=== PATIENT | female | born 1975 | race American Indian/Alaskan Native ===

== ENCOUNTER 2016-07-14 10:38 | Emergency (ER) | payer MEDICAID ==
[2011-04-16 10:11] VITALS: BMI 21.5
== END 2016-07-14 14:08 | disposition left against medical advice (07) ==
LOC: D.ER 10:38
DX: R05 Cough (principal)

== ENCOUNTER → 2016-10-02 16:33 | Outpatient (CLI) | payer MEDICAID ==
[2011-04-16 10:11] VITALS: BMI 21.5
== END | disposition home or self-care (01) ==
LOC: D.MAMMO 08:15
DX: Z12.31 Encounter for screening mammogram for malignant neoplasm of breast (principal)

== ENCOUNTER → 2017-09-01 08:31 | Outpatient (CLI) | payer MEDICAID ==
[2011-04-16 10:11] VITALS: BMI 21.5
== END | disposition home or self-care (01) ==
LOC: D.RT 08:31
DX: R06.09 Other forms of dyspnea (principal)

== ENCOUNTER 2017-11-14 22:57 | Emergency (ER) | payer MEDICAID ==
[2011-04-16 10:11] VITALS: BMI 21.5
== END 2017-11-15 00:46 | disposition home or self-care (01) ==
LOC: D.ER 22:57
DX: S01.112A Laceration without foreign body of left eyelid and periocular area, initial encounter (principal); Y04.2XXA Assault by strike against or bumped into by another person, initial encounter; Y93.89 Activity, other specified; Y92.019 Unspecified place in single-family (private) house as the place of occurrence of the external cause; F17.200 Nicotine dependence, unspecified, uncomplicated

== ENCOUNTER 2017-12-13 19:17 | Emergency (ER) | payer MEDICAID ==
[~2017-12-13] VITALS: Ht 170.2 cm; Wt 57.7 kg
[2017-12-13 19:31] VITALS: Ht 170.2 cm; Wt 57.7 kg
[2017-12-13] MEDS ORDERED: SPIRIVA18 MCG INH (19:33)
[2017-12-13] MEDS ORDERED: PROAIR HFA8.5 GM INH (19:33)
[2017-12-13] MEDS ORDERED: SOMA350 MG PO (19:34)
[2017-12-13] MEDS ORDERED: MOBIC7.5 MG PO (19:34)
[2017-12-13] MEDS ORDERED: KLONOPIN1 MG PO (19:35)
[2017-12-13 20:41] LABS: BASOPHILS 0.5 % (0-2); EOSINOPHILS 0.8 % (0-7); HEMATOCRIT 38.8 % (36.0-48.0); HEMOGLOBIN 13.5 g/dL (12-16); IMMATURE GRANULOCYTES 0.2 % (0-5); LYMPHOCYTES 42.2 % (15-50); MCH 33.6 pg (26.0-34.0); MCHC 34.8 g/dL (31.0-37.0); MCV 96.5 fL (80.0-100.0); MEAN PLATELET VOLUME 10.4 fL (7.4-10.4); MONOCYTES 12.6 % (2-11); NEUTROPHILS 43.7 % (40-80); PLATELET COUNT 237 10x3/uL (130-400); RBC 4.02 10x6/uL (4.00-5.40); RDW 12.4 % (11.5-14.5); WBC 6.4 10x3/uL (4.8-10.8)
[2017-12-13 21:08] LABS: ALBUMIN 3.4 g/dL (3.4-5.0); ALKALINE PHOSPHATASE 95 U/L (46-116); ALT (SGPT) 21 U/L (10-68); BILIRUBIN - TOTAL 0.26 mg/dL (0.2-1.3); CALC OSMOLALITY 282 mosm/kg (275-300); CALCIUM 9.2 mg/dL (8.5-10.1); CHLORIDE - SERUM 102 mmol/L (98-107); CKMB 0.1 U/L (0.0-3.6); CREATINE KINASE 87 UL (21-215); CREATININE - SERUM 0.8 mg/dL (0.6-1.3); GLUCOSE 94 mg/dL (74-106); PRO BNP 83 pg/mL (0-125); PROTEIN - SERUM 7.8 g/dL (6.4-8.2); SODIUM 141 mmol/L (136-145); UREA NITROGEN 19 mg/dL (7-18); eGFR NON AFRICAN AMERICAN 82 mL/min (90-120)
[2017-12-13 21:12] LABS: POTASSIUM - SERUM 2.7 mmol/L (3.5-5.1)
[2017-12-14 01:12] LABS: UDS - AMPHET NEGATIVE QUAL (NEGATIVE); UDS - BARB NEGATIVE QUAL (NEGATIVE); UDS - BENZO NEGATIVE QUAL (NEGATIVE); UDS - COCAINE NEGATIVE QUAL (NEGATIVE); UDS - OPIATE NEGATIVE QUAL (NEGATIVE); UDS - PCP NEGATIVE QUAL (NEGATIVE); UDS - THC POSITIVE QUAL (NEGATIVE)
[2017-12-14 01:14] LABS: APPEARANCE CLOUDY (CLEAR); BILIRUBIN NEGATIVE (NEGATIVE); COLOR YELLOW (YELLOW); GLUCOSE NEGATIVE (NEGATIVE); KETONE LARGE mg/dL (NEGATIVE); NITRITE POSITIVE (NEGATIVE); PROTEIN 1+ mg/dL (NEGATIVE); SPECIFIC GRAVITY 1.015 (1.005-1.020); UROBILINOGEN NORMAL (NORMAL)
[2017-12-14 01:15] LABS: BACTERIA MANY /hpf (NONE SEEN); EPITHELIAL CELLS 0-5 /hpf (0-5); MUCUS <1+ /lpf (NONE SEEN); RED CELLS - URINE 0-5 /hpf (0-5)
[2017-12-14] MEDS ORDERED: LEVAQUIN500 MG PO (01:27)
[2017-12-14 01:38] VITALS: BP 106/61
== END 2017-12-14 01:39 | disposition home or self-care (01) ==
LOC: D.ER 19:17
PROVIDERS: Family Medicine
DX: N39.0 Urinary tract infection, site not specified (principal); E87.6 Hypokalemia; R53.1 Weakness; J44.9 Chronic obstructive pulmonary disease, unspecified; M54.9 Dorsalgia, unspecified; F17.200 Nicotine dependence, unspecified, uncomplicated

== ENCOUNTER 2017-12-19 12:08 | Emergency (ER) | payer MEDICAID ==
[~2017-12-19] VITALS: Ht 170.2 cm; Wt 54.5 kg
[~2017-12-19 12:08] MED LIST: KLONOPIN1 MG PO; LEVAQUIN500 MG PO; MOBIC7.5 MG PO; PROAIR HFA8.5 GM INH; SOMA350 MG PO; SPIRIVA18 MCG INH
[2017-12-19 12:47] VITALS: Ht 170.2 cm; Wt 54.5 kg
[2017-12-19 13:52] LABS: BASOPHILS 0.8 % (0-2); EOSINOPHILS 0.8 % (0-7); HEMATOCRIT 34.8 % (36.0-48.0); HEMOGLOBIN 11.6 g/dL (12-16); IMMATURE GRANULOCYTES 0.2 % (0-5); LYMPHOCYTES 38.7 % (15-50); MCH 32.7 pg (26.0-34.0); MCHC 33.3 g/dL (31.0-37.0); MEAN PLATELET VOLUME 10.1 fL (7.4-10.4); MONOCYTES 8.7 % (2-11); NEUTROPHILS 50.8 % (40-80); PLATELET COUNT 229 10x3/uL (130-400); RBC 3.55 10x6/uL (4.00-5.40); RDW 12.6 % (11.5-14.5); WBC 5.1 10x3/uL (4.8-10.8)
[2017-12-19 14:12] LABS: ALKALINE PHOSPHATASE 81 U/L (46-116); ALT (SGPT) 23 U/L (10-68); BILIRUBIN - TOTAL 0.21 mg/dL (0.2-1.3); CALC OSMOLALITY 286 mosm/kg (275-300); CALCIUM 8.9 mg/dL (8.5-10.1); CARBON DIOXIDE 29.6 mmol/L (21.0-32.0); CHLORIDE - SERUM 106 mmol/L (98-107); CREATININE - SERUM 0.8 mg/dL (0.6-1.3); GLUCOSE 107 mg/dL (74-106); PROTEIN - SERUM 6.3 g/dL (6.4-8.2); SODIUM 143 mmol/L (136-145); UREA NITROGEN 19 mg/dL (7-18); eGFR NON AFRICAN AMERICAN 82 mL/min (90-120)
[2017-12-19 15:16] LABS: APPEARANCE HAZY (CLEAR); BILIRUBIN NEGATIVE (NEGATIVE); COLOR YELLOW (YELLOW); GLUCOSE NEGATIVE (NEGATIVE); KETONE NEGATIVE (NEGATIVE); NITRITE NEGATIVE (NEGATIVE); PH 8.5 (5.0-6.0); PROTEIN NEGATIVE (NEGATIVE); SPECIFIC GRAVITY 1.005 (1.005-1.020); UROBILINOGEN NORMAL (NORMAL)
[2017-12-19 15:29] LABS: UDS - AMPHET NEGATIVE QUAL (NEGATIVE); UDS - BARB NEGATIVE QUAL (NEGATIVE); UDS - BENZO NEGATIVE QUAL (NEGATIVE); UDS - COCAINE NEGATIVE QUAL (NEGATIVE); UDS - OPIATE NEGATIVE QUAL (NEGATIVE); UDS - PCP NEGATIVE QUAL (NEGATIVE); UDS - THC POSITIVE QUAL (NEGATIVE)
[2017-12-19] MEDS ORDERED: CENTRUM SILVER1 EAC3 PO (15:36)
[2017-12-19 16:00] VITALS: BP 116/72
== END 2017-12-19 16:00 | disposition home or self-care (01) ==
LOC: D.ER 12:08
PROVIDERS: Family Medicine
DX: R53.1 Weakness (principal); J44.9 Chronic obstructive pulmonary disease, unspecified

== ENCOUNTER → 2018-06-21 17:42 | Outpatient (CLI) | payer MEDICAID ==
[2017-12-19 12:47] VITALS: BMI 18.8
[~2018-06-21 17:42] MED LIST changes: +CENTRUM SILVER1 EAC3 PO
== END | disposition home or self-care (01) ==
LOC: D.MAMMO 14:30
DX: Z12.31 Encounter for screening mammogram for malignant neoplasm of breast (principal)

== ENCOUNTER 2018-09-06 12:57 | Emergency (ER) | payer MEDICAID ==
[~2018-09-06] VITALS: Ht 170.2 cm; Wt 58.2 kg
[2018-09-06 13:09] VITALS: Ht 170.2 cm; Wt 58.2 kg
[2018-09-06] MEDS ORDERED: BACTRIM 400-801 TAB PO (13:11)
[2018-09-06] MEDS ORDERED: ZITHROMAX250 MG PO (13:11)
[2018-09-06 13:44] LABS: BASOPHILS 0.2 % (0-2); EOSINOPHILS 0 % (0-7); HEMATOCRIT 35.6 % (36.0-48.0); HEMOGLOBIN 12.3 g/dL (12-16); IMMATURE GRANULOCYTES 0.3 % (0-5); MCH 32.5 pg (26.0-34.0); MCHC 34.6 g/dL (31.0-37.0); MCV 94.2 fL (80.0-100.0); MEAN PLATELET VOLUME 10.2 fL (7.4-10.4); MONOCYTES 2.9 % (2-11); NEUTROPHILS 88.6 % (40-80); RBC 3.78 10x6/uL (4.00-5.40); RDW 12.6 % (11.5-14.5); WBC 11.2 10x3/uL (4.8-10.8)
[2018-09-06 13:49] LABS: PLATELET COUNT 278 10x3/uL (130-400)
[2018-09-06 13:50] LABS: ALBUMIN 3.1 g/dL (3.4-5.0); ANION GAP 17.9 mmol/L (8-16); BILIRUBIN - TOTAL 0.48 mg/dL (0.2-1.3); CALCIUM 8.6 mg/dL (8.5-10.1); CARBON DIOXIDE 24.3 mmol/L (21.0-32.0); POTASSIUM - SERUM 3.2 mmol/L (3.5-5.1); PROTEIN - SERUM 7.3 g/dL (6.4-8.2)
[2018-09-06 14:25] VITALS: BP 89/67
== END 2018-09-06 14:26 | disposition home or self-care (01) ==
LOC: D.ER 12:57
PROVIDERS: Emergency Medicine
DX: J40 Bronchitis, not specified as acute or chronic (principal); J98.11 Atelectasis; F17.200 Nicotine dependence, unspecified, uncomplicated

== ENCOUNTER 2018-09-18 17:23 | Emergency (ER) | payer MEDICAID ==
[~2018-09-18] VITALS: Ht 170.2 cm; Wt 56.4 kg
[~2018-09-18 17:23] MED LIST changes: +BACTRIM 400-801 TAB PO; +ZITHROMAX250 MG PO
[2018-09-18 17:36] VITALS: BP 119/71; Ht 170.2 cm; Wt 56.4 kg
[2018-09-18] MEDS ORDERED: VOLTAREN75 MG PO (18:03)
== END 2018-09-18 18:53 | disposition home or self-care (01) ==
LOC: D.ER 17:23
DX: S62.304A Unspecified fracture of fourth metacarpal bone, right hand, initial encounter for closed fracture (principal); Y04.2XXA Assault by strike against or bumped into by another person, initial encounter; Y93.89 Activity, other specified; Y92.019 Unspecified place in single-family (private) house as the place of occurrence of the external cause

== ENCOUNTER 2018-12-06 20:41 | Emergency (ER) | payer BC ==
[~2018-12-06] VITALS: Ht 170.2 cm; Wt 56.8 kg
[~2018-12-06 20:41] MED LIST changes: +VOLTAREN75 MG PO
[2018-12-06 20:54] VITALS: Ht 170.2 cm; Wt 56.8 kg
[2018-12-06] MEDS ORDERED: VIBRAMYCIN 100100 MG PO (21:49)
[2018-12-06] MEDS ORDERED: VOLTAREN75 MG PO (21:49)
[2018-12-06 22:07] VITALS: BP 123/74
== END 2018-12-06 22:00 | disposition home or self-care (01) ==
LOC: D.ER 20:41
DX: L03.116 Cellulitis of left lower limb (principal)

== ENCOUNTER 2018-12-09 14:08 | Emergency (ER) | payer MEDICAID ==
[~2018-12-09] VITALS: Ht 170.2 cm; Wt 54.5 kg
[~2018-12-09 14:08] MED LIST changes: +VIBRAMYCIN 100100 MG PO
[2018-12-09 14:13] VITALS: BP 118/76; Ht 170.2 cm; Wt 54.5 kg
== END 2018-12-09 14:23 ==
LOC: D.ER 14:08
DX: M54.2 Cervicalgia (principal); Y35.891A Legal intervention involving other specified means, law enforcement official injured, initial encounter; Y93.89 Activity, other specified; Y92.810 Car as the place of occurrence of the external cause; R45.1 Restlessness and agitation

== ENCOUNTER 2018-12-24 21:42 | Emergency (ER) | payer MEDICAID ==
[~2018-12-24] VITALS: Ht 170.2 cm; Wt 58.2 kg
[2018-12-24 22:00] VITALS: Ht 170.2 cm; Wt 58.2 kg
[2018-12-24] MEDS ORDERED: PROZAC10 MG (22:02)
[2018-12-24] MEDS ORDERED: SYMBICORT 16010.2 GM (22:02)
[2018-12-25] MEDS ORDERED: HYDROCODON-ACE1 EAC2 PO (00:01)
[2018-12-25 00:27] VITALS: BP 110/76
== END 2018-12-25 00:27 | disposition home or self-care (01) ==
LOC: D.ER 21:42
DX: S60.051A Contusion of right little finger without damage to nail, initial encounter (principal); X58.XXXA Exposure to other specified factors, initial encounter; Y93.89 Activity, other specified; Y92.89 Other specified places as the place of occurrence of the external cause

== ENCOUNTER 2019-01-05 15:16 | Emergency (ER) | payer MEDICAID ==
[~2019-01-05] VITALS: Ht 170.2 cm; Wt 59.1 kg
[~2019-01-05 15:16] MED LIST changes: +HYDROCODON-ACE1 EAC2 PO; +PROZAC10 MG; +SYMBICORT 16010.2 GM
[2019-01-05 15:43] VITALS: BP 105/57; Ht 170.2 cm; Wt 59.1 kg
[2019-01-05] MEDS ORDERED: MOBIC7.5 MG PO (15:44)
== END 2019-01-05 16:10 | disposition home or self-care (01) ==
LOC: D.ER 15:16
DX: S61.216D Laceration without foreign body of right little finger without damage to nail, subsequent encounter (principal); X58.XXXD Exposure to other specified factors, subsequent encounter; Z48.02 Encounter for removal of sutures

== ENCOUNTER → 2019-01-06 14:11 | Outpatient (CLI) | payer MEDICAID ==
[2019-01-05 15:43] VITALS: BMI 20.4
[2019-01-07 08:13] LABS: IMMUNOGLOBULIN A 202 mg/dL (87-352); IMMUNOGLOBULIN G 909 mg/dL (700-1600); IMMUNOGLOBULIN M 73 mg/dL (26-217)
[2019-01-12 03:06] LABS: IMMUNOGLOBULIN E 27 IU/mL (6-495)
== END | disposition home or self-care (01) ==
LOC: D.RT 12-30 10:00 → D.RAD 12-30 10:45 → D.LAB 12-30 11:00
PROVIDERS: ATTEND Internal Medicine Pulmonary Disease
DX: J44.9 Chronic obstructive pulmonary disease, unspecified (principal)

== ENCOUNTER 2019-03-06 09:54 | Emergency (ER) | payer MEDICAID ==
[~2019-03-06] VITALS: Ht 170.2 cm; Wt 50.0 kg
[2019-03-06 09:58] VITALS: BP 133/72; Ht 170.2 cm; Wt 50.0 kg
== END 2019-03-06 11:15 | disposition left against medical advice (07) ==
LOC: D.ER 09:54
DX: R21 Rash and other nonspecific skin eruption (principal)

== ENCOUNTER → 2019-09-12 09:35 | Outpatient (CLI) | payer MEDICAID ==
[2019-03-06 09:58] VITALS: BMI 17.2
== END | disposition home or self-care (01) ==
LOC: D.RAD 09:35
PROVIDERS: ATTEND Internal Medicine Pulmonary Disease
DX: R91.8 Other nonspecific abnormal finding of lung field (principal)

== ENCOUNTER → 2019-12-13 14:40 | Outpatient (CLI) | payer MEDICAID ==
[2019-03-06 09:58] VITALS: BMI 17.2
== END | disposition home or self-care (01) ==
LOC: D.MRI 14:40
PROVIDERS: ATTEND Obstetrics & Gynecology
DX: E22.1 Hyperprolactinemia (principal)

== ENCOUNTER 2020-01-01 06:15 | Day surgery (SDC) | payer MEDICAID ==
[2019-12-29 10:58] LABS: BASOPHILS 0.2 % (0-2); EOSINOPHILS 0.4 % (0-7); HEMATOCRIT 41.9 % (36.0-48.0); HEMOGLOBIN 14.1 g/dL (12-16); IMMATURE GRANULOCYTES 0.1 % (0-5); LYMPHOCYTES 27.2 % (15-50); MCH 33.2 pg (26.0-34.0); MCHC 33.7 g/dL (31.0-37.0); MCV 98.6 fL (80.0-100.0); MEAN PLATELET VOLUME 9.7 fL (7.4-10.4); MONOCYTES 6.2 % (2-11); NEUTROPHILS 65.9 % (40-80); PLATELET COUNT 232 10x3/uL (130-400); RBC 4.25 10x6/uL (4.00-5.40); RDW 12.1 % (11.5-14.5); WBC 8.3 10x3/uL (4.8-10.8)
[2019-12-29 11:06] LABS: CALCIUM 8.5 mg/dL (8.5-10.1); CARBON DIOXIDE 31.9 mmol/L (21.0-32.0); CREATININE - SERUM 1.2 mg/dL (0.6-1.3); POTASSIUM - SERUM 3.9 mmol/L (3.5-5.1)
[~2020-01-01] VITALS: Ht 170.2 cm; Wt 67.3 kg
[2020-01-01] VITALS (12 sets, daily range): BP systolic 110–137; BP diastolic 59–93; Ht 170.2 cm; Wt 67.3 kg
[~2020-01-01 06:15] MED LIST changes: -PROZAC10 MG; +PROZAC10 MG PO; +[UNRECOGNIZED DRUG - OTHER] PO
[2020-01-01] MEDS ORDERED: VRAYLAR3 MG PO (06:30)
[2020-01-01 06:45] LABS: HCG URINE NEGATIVE (NEGATIVE)
--- NOTE | 2020-01-01 14:10 | NUR ---
PT RECEIVED VIA BED FROM PACU AT 1357 TO ROOM 1274. PT SLIGHTLY DROWSY, ORIENTED x3. PT RATES PAIN 5/10, AT INCISION AND DISCOMFORT FROM SPARKS CATH. PT DENIES WANTING ICE PACK FOR INCISION. LR INFUSING TO RIGHT HAND PIV ORDERED, SEE EMAR FOR DOC. 3 ABD LAP INCISIONS ARE C/D WITH DERMABOND INTACT. SPARKS CATH DRAINING SLIGHTLY CLOUDY YELLOW URINE. NO VAGINAL BLEEDING NOTED, PERIPAD PLACED TO MONITOR. SCD'S ON LE BILAT AND ON PUMP. VSS, PT SAT 96% ON ROOM AIR. PT REQUESTING PAIN MED, ADMIN ORDERED WELL SCHEDULED GABAPENTIN. SEE EMAR. PT DENIES NEEDS AT THIS TIME. SRUx2, CL IN REACH.
--- NOTE | 2020-01-01 14:15 | NUR ---
PT C/O DISCOMFORT FROM SPARKS CATH. SPARKS D/C'D PER ORDER. PT STATES SHE NEEDS TO VOID, PLACED ON BEDPAN BUT ONLY VOIDS DROPS OF URINE. PT ENCOURAGED, WILL TRY AGAIN LATER. SPRITE PROVIDED PER REQUEST. PT DENIES NAUSEA. EMESIS BAG PLACED AT BEDSIDE IN CASE OF NAUSEA WITH SPRITE.
--- NOTE | 2020-01-01 14:27 | NUR ---
O2 PLACED VIA NC FOR DECREASE IN O2 SATS AFTER DOSE OF DILAUDID. PT ROUSES TO VOICE, BUT QUICKLY FALLS BACK ASLEEP WHEN SHE STOPS TALKING.
--- NOTE | 2020-01-01 14:57 | NUR ---
O2 VIA NC INCREASED TO 3L FOR DECREASED OXYGEN SATURATIONS WHILE PT SLEEPING. PT ALERTS TO TOUCH, DENIES PAIN, FALLS BACK ASLEEP. SRUx2, CL IN REACH. WILL CONT TO MONITOR.
--- NOTE | 2020-01-01 16:00 | NUR ---
PT CONTINUES RESTING WITH EYES CLOSED, RESP EVEN AND UNLABORED. PT LEFT UNDISTURBED FOR REST. SRUx2, CL IN REACH. WILL CONT TO MONITOR.
--- NOTE | 2020-01-01 16:55 | NUR ---
THIS RN TO ROOM FOR PT CHECK. VSS. PERIPAD CHECKED AND NOTED TO HAVE SCANT VAGINAL BLEEDING. PT NOTED TO HAVE VOIDED LARGE AMOUNT URINE IN BED. BED LINENS CHANGED AND PT GOWN CHANGED. FANS DELIVERS DINNER TRAY. PT DENIES NAUSEA. PT SITS UP IN BED, HOB ELEVATED, PT ASSISTED TO SETTING UP DINNER TRAY. OXYGEN REMOVED PER PT, O2 SATS STABLE WITH OXYGEN OFF. PT DENIES NEEDS. WILL CONT TO MONITOR. SRUx2, CL IN REACH.
--- NOTE | 2020-01-01 17:42 | NUR ---
THIS RN TO ROOM FOR PT CHECK. PT RESTING WITH EYES CLOSED, O2 SATS NOTED TO HAVE DROPPED WHILE PT SLEEPING. PT ALERTS TO VOICE, OXYGEN REPLACED VIA NC AT 2L. HOB LOWERED PER PT FOR REST, DINNER TRAY REMOVED FROM ROOM, PT DENIES NEEDS. SRUx2, CL IN REACH.
--- NOTE | 2020-01-01 18:33 | NUR ---
THIS RN TO ROOM FOR PT CHECK. PT LYING IN BED ON LEFT SIDE, RESTING WITH EYES CLOSED, RESP EVEN AND UNLABORED. PT LEFT UNDISTURBED FOR REST. SRUx2, CL IN REACH.
--- NOTE | 2020-01-01 19:30 | NUR ---
BEDSIDE REPORT GIVEN BY MARISSA NOBLE.
--- NOTE | 2020-01-01 19:45 | NUR ---
PT TAKEN TO BR. SHE DID NOT C/O OF DIZZINESS DURING THIS TRIP UNTIL WE STARTED BACK TO BED. SHE BECAME A LITTLE DIZZY BUT STATES THIS HAS BEEN HAPPENING BEFORE THIS ADMISSION. SHE GOT BACK TO BED WITHOUT INCIDENT. ASSESSMENT WAS PERFORMED AND COMPLETED. PT IS VOIDING WELL. PT DID NOT C/O PAIN DURING THE TIME IN HER ROOM. SHE HAS THREE SMALL INCISIONS FROM HER LAP HYSTROECTOMY. THE INCISIONS ARE NOT COVERED AND ARN NOT DRAINING. PT HAS SEROUS BLEEDING SMALL AMT FROM HER VAGINA. SHE CHANGED HER PAD IN THE BR AND PUT ON DISPOSIBLE PANTIES. HEART SOUNDS ARE NORMAL, LUNGS ARE CLEAR AND BOWEL SOUNDS HEARD. PT WAS ASKED TO PLEASE CALL WHEN SHE NEEDED TO GET UP. SHE VERBALIZED UNDERSTANDING.
--- NOTE | 2020-01-01 20:20 | NUR ---
PT REQUEST A SPRITE TO DRINK. THE WAS TAKEN TO THE PT. SHE IS NAPPING ON AND OFF.
--- NOTE | 2020-01-01 20:45 | NUR ---
PT WAS NAPPING WHEN I TOOK HER MEDS TO HER. I TURNED THE LIGHTS OUT IN HER ROOM SO SHE COULD SLEEP.
--- NOTE | 2020-01-01 21:21 | NUR ---
PT WAS TAKEN A MUG OF WATER PER HER REQUEST.
--- NOTE | 2020-01-01 22:36 | NUR ---
RN TO PT BEDSIDE, IV SALINE LOCKED, STANDBY ASSISTANCE PT AMBULAED TO BATHROOM, GAIT STEADY. BED IN LOWEST POSITION, CALL LIGHT IN REACH, SIDE RAILS UPX2.
--- NOTE | 2020-01-01 23:30 | NUR ---
PT IS RESTING IN BED ON HER LEFT SIDE QUIETLY. RESPIRATIONS EVEN AND UNLABORED
[2020-01-02 00:30] VITALS: BP 93/52
--- NOTE | 2020-01-02 00:44 | NUR ---
PT AWAKE. SHE C/O PAIN RATED AN 8. PT STATES SHE DID NOT KNOW TO ASK FOR PAIN MEDS. I EXPLAINED TO HER THAT SHE HAS TO ASK. SHE VERBALIZES UNDERSTANDINGN OF THIS NOW. I GAVE HER SCHEDULED TORADOL AND 10 MG PERCOCET. SHE ATE SOME ELROY CRACKERS TO TRY TO PREVENT NAUSEA. SHE HAS HAD NO NAUSEA THIS SHIFT.
--- NOTE | 2020-01-02 02:00 | NUR ---
PT IS SLEEPING AT THIS TIME. NO C/O OR NEEDS AT THIS TIME.
--- NOTE | 2020-01-02 04:15 | NUR ---
PT WAKED UP FOR VS. SHE STATES SHE IS DOING WELL BUT FEELS TIRED. SHE ASKED FOR ANOTHER SPRITE, WHICH WAS DELIVERED TO HER.
[2020-01-02 04:16] VITALS: BP 96/51
--- NOTE | 2020-01-02 06:13 | NUR ---
PT IS RESTING WITH HER EYES CLOSED. RESPIRATIONS ARE EVEN, REGULAR AND UNLABORED.
--- NOTE | 2020-01-02 08:00 | NUR ---
AM ASSESSMENT COMPLETED CHARTED TO FLOWSHEET. SHE RATES PAIN AT 3/10 AND STATES MOSTLY ON HER RIGHT SIDE BUT SAYS PAIN MED SEEMS TO TAKE CARE OF IT. SALINE LOCK FROM RIGHT HAND REMOVED WITH CATH INTACT. REASSURED HER THAT WAS OK FOR HER TO DRESS IN HER CLOTHING AND AMBULATE IN HALLS. DENIES NEEDS AT THIS TIME. REGULAR DIET TRAY SERVED PER DIETARY.
--- NOTE | 2020-01-02 08:10 | NUR ---
DR GODFREY ON UNIT WITH ROUNDS MADE, WRITTEN SCRIPTS PLACED IN PT CHART AND MD STATES THAT PT MAY DISCHARGE HOME WHEN READY.
[2020-01-02 08:30] VITALS: BP 110/60
[2020-01-02] MEDS ORDERED: PERCOCET 7.5/321 TAB PO (08:49)
[2020-01-02] MEDS ORDERED: ESTRACE1 MG PO (08:52)
[2020-01-02] MEDS ORDERED: NEURONTIN 300300 MG PO (08:52)
--- NOTE | 2020-01-02 08:55 | NUR ---
PT AMB OFF UNIT PER SELF, NO SIGNS OF DISTRESS NOTED.
--- NOTE | 2020-01-02 09:00 | NUR ---
PAIN MED GIVEN REQUESTED FOR PAIN THAT SHE RATES AT 7/10. PT STATES THAT HER RIDE WILL BE HERE AROUND 0930. STATES THAT DR GODFREY TOLD HER SHE WAS ABLE TO LEAVE WHEN READY. UNDERSTANDS THAT DISCHARGE PAPERWORK NEEDED TO BE GONE OVER.
--- NOTE | 2020-01-02 09:15 | NUR ---
VERBAL AND WRITTEN DISCHARGE ORDERS GONE OVER WITH WRITTEN SCRIPTS GIVEN FOR PERCOCET 7.5/325MG, MOBIC 15MG, NEUROTIN 300MG, ESTRACE 1MG. PRINTED INFO GIVEN ON EACH MEDICATION. S/S OF INFECTION ALSO GONE OVER AT THIS TIME AND PT VOICES HER UNDERSTANDING. DENIES QUESTIONS OR CONCERNS. WILL CALL WHEN HER RIDE IS OUT FRONT.
--- NOTE | 2020-01-02 09:30 | NUR ---
PT TAKEN OUT TO CAR BY WHEELCHAIR, SHE RATES HER PAIN AT 2/10 AT THIS TIME AND SHOWS NO SIGNS OF DISTRESS. HOME BY PRIVATE CAR WITH FAMILY/FRIEND.
--- NOTE | 2020-01-09 10:40 | OP ---
PATIENT NAME: MARJAN SCHERER MEDICAL RECORD: [id number] :71 LOCATION:D.OPS ADMISSION DATE: SURGEON: SHARONA GODFREY MD DATE OF OPERATION: 01/01/2020 DATE OF SERVICE: 01/01/2020 PREOPERATIVE DIAGNOSES: 1. Abnormal uterine bleeding. 2. Dysmenorrhea. POSTOPERATIVE DIAGNOSES: 1. Abnormal uterine bleeding. 2. Dysmenorrhea. PROCEDURE: 1. Diagnostic laparoscopy. 2. Total laparoscopic hysterectomy. 3. Bilateral salpingo-oophorectomy. SURGEON: Sharona Godfrey MD ANESTHESIOLOGIST: Dr. Koehler. ANESTHETIC: General. FINDINGS: Uterus, tubes and ovaries are unremarkable. A single Filshie clip was identified, attached to the right tube. The remaining Filshie clip was not seen. SPECIMENS REMOVED: Uterus, tubes, and ovaries. SPECIMEN DISPOSITION: Pathology. ESTIMATED BLOOD LOSS: Less than or equal to 100 cc. FLUIDS: 2400 cc lactated Ringer's. URINE OUTPUT: 400 cc of clear urine. COMPLICATIONS: None. DRAIN: Gayle to gravity. INDICATIONS: The patient is a 44-year-old female with heavy periods marked with intense cramping. The patient has received conservative therapy without results. The patient desires definitive treatment. Risks, benefits as well as significance of hormone replacement therapy have been discussed with the patient. The patient wishes to proceed. DESCRIPTION OF PROCEDURE: After informed consent was assured, the patient was taken to the operating room where anesthetic was obtained. The patient was now prepped and draped in the usual sterile fashion. The uterine manipulator was placed and attention was directed to the abdomen. Incision was made at the umbilicus to accommodate a 5-mm trocar. Accessory trocars were now placed in OPERATIVE REPORT [id number] MARJAN SCHERER the right lower quadrant and left lower quadrant. Right lower quadrant port was 11-mm. The left lower quadrant port was 5-mm. With the patient in Trendelenburg position and the bowel swept free of the pelvis, the uterus was manipulated to the left and the right tube elevated. The infundibulopelvic ligament was identified compressed, coagulated, and with Thunderbeat coagulation cutter. The dissection was carried out underneath the right adnexa across the round ligament and anterior leaf of the broad ligament was opened, developing the bladder flap to the midline. The posterior leaf was dissected free of the vascular bundle, which was now identified at the level of the internal os. The bundle was now compressed, coagulated, and . Attention was directed to the left side. Like in similar fashion, the tube and ovary was elevated from the right. Using the Thunderbeat coagulation cutter, now moving from the left, the pedicle was compressed, coagulated, and . Dissection was carried out underneath the left adnexa across the round ligament and the anterior leaf of the broad ligament was opened. The bladder flap was now fully developed. Posteriorly, the tissue was dissected free of the left vascular bundle, which was now identified compressed, coagulated, and . The uterus and cervix now removed from its attachment to the cervix with dissection from the 12-6 o'clock position going counterclockwise on the left and concluding with dissection on the right, going from 12-6 in a clockwise fashion. The uterus, tubes and ovaries were pulled into the vagina and pneumoperitoneum was maintained. The pelvis was now copiously irrigated and irrigant removed. Using Stratafix stitch on a cT2 needle, the cuff was closed, moving from the right side to the left. After the closure of the cuff, the stitches pulled tight and cut short. The inspection of the surgical field revealed adequate hemostasis. The pneumoperitoneum was now released and specimen removed from the vagina. All trocars were removed and the trocar sites closed with subcuticular stitch and Dermabond applied. Sponge, lap, needle counts were correct times 2 and the patient was awakened and went to the recovery room in stable condition. TRANSINT:[id number] Voice Confirmation ID: [id number] DOCUMENT ID: [id number] SHARONA GODFREY MD at 1040 CC: [id number] DICTATION DATE: 01/09/20721 [place] APPLICATOR: 01/09/20 0914 [facility] 01/02/20 [id number] [place] [address]
== END 2020-01-02 09:30 | disposition home or self-care (01) ==
LOC: D.OPS 06:15 → D.PAN 07:00 → D.OPS 07:00 → D.LD 13:19 → D.OPS 01-02 09:30
PROVIDERS: ATTEND Obstetrics & Gynecology
DX: N93.9 Abnormal uterine and vaginal bleeding, unspecified (principal); N94.6 Dysmenorrhea, unspecified; J45.909 Unspecified asthma, uncomplicated; Z72.0 Tobacco use; E22.1 Hyperprolactinemia

== ENCOUNTER → 2020-09-13 11:39 | Outpatient (CLI) | payer MEDICAID ==
[2020-07-07 13:02] VITALS: BMI 25.1
[~2020-09-13 11:39] MED LIST changes: +ESTRACE1 MG PO; +NEURONTIN 300300 MG PO; +PERCOCET 7.5/321 TAB PO; +VRAYLAR3 MG PO
== END | disposition home or self-care (01) ==
LOC: D.LAB 11:39
PROVIDERS: ATTEND Internal Medicine Pulmonary Disease
DX: Z11.52 Encounter for screening for COVID-19 (principal)

== ENCOUNTER → 2020-09-19 07:55 | Outpatient (CLI) | payer BC ==
[2020-07-07 13:02] VITALS: BMI 25.1
== END | disposition home or self-care (01) ==
LOC: D.RT 07-31 08:00
PROVIDERS: ATTEND Internal Medicine Pulmonary Disease
DX: J44.9 Chronic obstructive pulmonary disease, unspecified (principal)